=== PATIENT | male | born 1955 | race Caucasian/White ===

== ENCOUNTER → 2020-11-05 | Outpatient (CLI) | payer OTHER ==
--- NOTE | 2020-11-05 12:58 | XR ---
EXAMINATION TYPE: XR shoulder complete LT, XR clavicle LT DATE OF EXAM: 11/05/2020 CLINICAL HISTORY: Lifting injury with pain. TECHNIQUE: Three views of the left shoulder are obtained. 2 views left clavicle. COMPARISON: None. FINDINGS: No acute displaced clavicular fracture. Overlying soft tissue is unremarkable. There is no acute fracture/dislocation evident in the left shoulder. Moderate narrowing at the acromi oclavicular joint. The distal acromion morphology unremarkable. Mild to moderate glenohumeral joint n arrowing. The visualized ribs are intact and unremarkable. IMPRESSION: There is no acute fracture or dislocation in the left clavicle or shoulder.
== END | disposition home or self-care (01) ==
LOC: RADXRMAIN 12:25
PROVIDERS: ATTEND Emergency Medicine
DX: S46.812A Strain of other muscles, fascia and tendons at shoulder and upper arm level, left arm, initial encounter (principal); X58.XXXA Exposure to other specified factors, initial encounter